=== PATIENT | male | born 1940 | race Caucasian/White ===

== ENCOUNTER → 2017-01-30 | Outpatient (CLI) | payer MEDICARE, BC | LOC: COL.RAD 07:14 | DX: Z01.89 Encounter for other specified special examinations (principal) ==

== ENCOUNTER → 2017-02-01 | Outpatient (CLI) | payer MEDICARE, BC | LOC: COL.RAD 07:15 | DX: M47.812 Spondylosis without myelopathy or radiculopathy, cervical region (principal); M48.02 Spinal stenosis, cervical region ==

== ENCOUNTER 2018-08-30 18:45 | Emergency (ER) | payer MEDICARE, BC ==
[~2018-08-30] VITALS: Ht 177.8 cm; Wt 111.4 kg
[~2018-08-30 18:45] MED LIST: OMNICEF 300MG300 MG PO; ZITHROMAX Z PA250 MG PO
[2018-08-30 20:21] LABS: COLLECTION METHOD CATHETER
[2018-08-30 20:33] LABS: AMORPHOUS CRYSTAL Present /uL; MUCOUS Present /lpf; PH 7 (5-8); SQUAMOUS EPITHELIAL None Seen /hpf; URINE APPEARANCE Clear; URINE BACTERIA None Seen /hpf; URINE BILIRUBIN Negative (NEGATIVE); URINE BLOOD 3+ (NEGATIVE); URINE COLOR Yellow; URINE GLUCOSE Negative (NEGATIVE); URINE KETONE Trace (NEGATIVE); URINE LEUKOCYTE ESTERASE Trace (NEGATIVE); URINE NITRATE Negative (NEGATIVE); URINE PROTEIN(semi-quant) Negative (NEGATIVE); URINE RBC >50 /hpf; URINE UROBILINOGEN Negative (NEGATIVE)
[2018-08-30 20:53] LABS: BASO % 0.3 % (0.0-2.0); EOS % 0.2 % (0-4.0); GRAN # 10.2 (1.4-6.5); HEMATOCRIT 41.5 % (42.0-52.0); HEMOGLOBIN 14.9 g/dl (13.5-18.0); LYMPH # 1.2 (1.2-3.4); LYMPH % 9.8 % (20.0-51.0); MEAN CELL VOLUME 91 fl (80.0-100.0); MEAN CORPUSCULAR HEMOGLOBIN 33 pg (27.0-31.0); MEAN CORPUSCULAR HGB CONC 36 g/dl (33.0-37.0); MEAN PLATELET VOLUME 12.1 fl (7.4-10.4); MONO # 0.5 (0.1-0.6); MONO % 4.3 % (1.7-9.3); PLATELET COUNT 260 K/mm3 (130-400); RED BLOOD COUNT 4.56 M/mm3 (4.20-5.60); REDCELL DISTRIBUTION WIDTH-CV 13.8 % (11.5-14.5)
[2018-08-30 21:21] LABS: ALBUMIN 3.7 gm/dL (3.5-5.0); BILIRUBIN,TOTAL 1.1 mg/dL (0.0-1.0); CALCIUM 8.8 mg/dL (8.4-10.2); CREATININE, serum 1.1 (0.66-1.25); TOTAL PROTEIN 7.2 gm/dL (6.4-8.2)
[2018-08-30 22:52] VITALS: TEMP 97.4
[2018-08-31] MEDS ORDERED: XANAX .25M0.25 MG/TA PO (00:21)
[2018-08-31] MEDS ORDERED: BUSPAR DIVIDOSE15 MG PO (00:21)
[2018-08-31 00:29] VITALS: BP 128/81; PULSE 78
== END 2018-08-31 00:50 | disposition short-term general hospital (02) ==
LOC: COL.ER 18:45
PROVIDERS: Emergency Medicine
DX: N36.8 Other specified disorders of urethra (principal); J18.9 Pneumonia, unspecified organism; J44.9 Chronic obstructive pulmonary disease, unspecified; N40.0 Benign prostatic hyperplasia without lower urinary tract symptoms; Z98.890 Other specified postprocedural states
CPT/HCPCS: J2405; J2543; J2765; J3010; J7030

== ENCOUNTER → 2018-09-03 | Outpatient (REF) ==
[~2018-09-03] MED LIST changes: +BUSPAR DIVIDOSE15 MG PO; +XANAX .25M0.25 MG/TA PO
== END ==
LOC: ZLAB.WCH 14:03
DX: Z01.89 Encounter for other specified special examinations (principal)

== ENCOUNTER 2018-10-23 06:50 | Day surgery (SDC) | payer MEDICARE, BC ==
[2018-10-23] VITALS (15 sets, daily range): BP systolic 105–143; BP diastolic 51–73; PULSE 51–76; TEMP 98.1
[~2018-10-23] VITALS: Ht 177.8 cm; Wt 101.1 kg
[2018-10-23 07:37] LABS: HEMATOCRIT 40.1 % (42.0-52.0); HEMOGLOBIN 14.2 g/dl (13.5-18.0); MEAN CELL VOLUME 92 fl (80.0-100.0); MEAN CORPUSCULAR HEMOGLOBIN 33 pg (27.0-31.0); MEAN CORPUSCULAR HGB CONC 35 g/dl (33.0-37.0); MEAN PLATELET VOLUME 9.4 fl (7.4-10.4); PLATELET COUNT 147 K/mm3 (130-400); RED BLOOD COUNT 4.35 M/mm3 (4.20-5.60); REDCELL DISTRIBUTION WIDTH-CV 13.7 % (11.5-14.5)
[2018-10-23 07:48] LABS: CALCIUM 9.8 mg/dL (8.4-10.2); CREATININE, serum 1.12 (0.66-1.25); POTASSIUM 4.2 mmol/L (3.4-5.0)
[2018-10-23] MEDS ORDERED: PROAIR RES117 MCG/Ac IH (08:40)
[2018-10-23] MEDS ORDERED: IPRATROPIUM BROM3 M1 IH (08:41)
[2018-10-23] MEDS ORDERED: ASPIRIN 81M81 MG/TA2 PO (08:41)
[2018-10-23] MEDS ORDERED: BUSPAR DIVIDOSE15 MG PO (08:42)
[2018-10-23] MEDS ORDERED: CALCIUM CARBON650 M2 PO (08:44)
[2018-10-23] MEDS ORDERED: COLACE 100100 MG/CAP PO (08:45)
[2018-10-23] MEDS ORDERED: MASON NATURAL1200 MG PO (08:46)
[2018-10-23] MEDS ORDERED: LOFIBRA160 MG PO (08:46)
[2018-10-23] MEDS ORDERED: FLONASEALLERGY NS (08:47)
[2018-10-23] MEDS ORDERED: ADVIL200 MG PO (08:47)
[2018-10-23] MEDS ORDERED: ATIVAN 1MG T1 MG/TAB PO (08:48)
[2018-10-23] MEDS ORDERED: PROBIOTIC-MAJOR PO (08:49)
[2018-10-23] MEDS ORDERED: PAXIL 10MG10 MG PO (08:49)
[2018-10-23] MEDS ORDERED: VITAMIN FLUSH-F1 CAP PO (08:49)
[2018-10-23] MEDS ORDERED: SEROQUEL50 MG PO (08:50)
[2018-10-23] MEDS ORDERED: MULTIVITAMIN SEN PO (08:50)
[2018-10-23] MEDS ORDERED: ZANTAC 150MG T150 MG PO (08:51)
[2018-10-23] MEDS ORDERED: FLOMAX 0.40.4 MG/CAP PO (08:51)
[2018-10-23] MEDS ORDERED: ZANAFLEX CAPSULE4 MG PO (08:52)
--- NOTE | 2018-10-23 09:05 | NUR ---
Pt to procedure,report to Greta Palmer
--- NOTE | 2018-10-23 09:08 | NUR ---
SEE MERGE DOCUMENTATION FOR MEDICATION ADMINISTRATION TIMES AND INTRA/POST PROCEDURE SEDATION ASSESSMENTS. FAILED RIGHT RADIAL BARBEAU TEST; MD NOTIFIED. WILL PROCEED WITH FEMORAL APPROACH.
[2018-10-23] MEDS ORDERED: PLAVIX 75MG TAB75 MG PO (09:59)
[2018-10-23] MEDS ORDERED: ZEBETA 5MG5 MG PO (10:00)
[2018-10-23] MEDS ORDERED: LIPITOR 40MG TA40 MG PO (10:01)
--- NOTE | 2018-10-23 10:20 | NUR ---
Pt transfer to Express Unit at this time. Bedside report given to BENITO Ortiz. Pt femoral access site examined with Express RN. Site without bleeding, oozing, bruising; dressing noted intact and dry. Site soft to palpation; no s/sx of hematoma noted. Distal pulses palpated +1, unchanged from pre-procedure. Monitoring equipment in place; VS's stable at this time.
--- NOTE | 2018-10-23 17:15 | NUR ---
Discharge instructions given to pt.pt verbalizes understanding.INT removed,catheter tip intact.pt escorted out via wheelchair by this nurse.
== END 2018-10-23 17:30 | disposition home or self-care (01) ==
LOC: COL.CAR 06:50
PROVIDERS: Internal Medicine Cardiovascular Disease
DX: I25.10 Atherosclerotic heart disease of native coronary artery without angina pectoris (principal); E78.2 Mixed hyperlipidemia; Z99.81 Dependence on supplemental oxygen; J44.9 Chronic obstructive pulmonary disease, unspecified; K21.9 Gastro-esophageal reflux disease without esophagitis; I10 Essential (primary) hypertension; E78.1 Pure hyperglyceridemia; L40.9 Psoriasis, unspecified; Z86.010 Personal history of colon polyps; Z98.52 Vasectomy status; Z79.899 Other long term (current) drug therapy; Z79.82 Long term (current) use of aspirin; Z87.891 Personal history of nicotine dependence; Z80.3 Family history of malignant neoplasm of breast; Z80.42 Family history of malignant neoplasm of prostate; Z82.3 Family history of stroke; Z82.49 Family history of ischemic heart disease and other diseases of the circulatory system
CPT/HCPCS: J1644; J2250; J3010

== ENCOUNTER 2020-11-23 12:25 | Inpatient (IN) | payer MEDICARE, BC ==
[~2020-11-23] VITALS: Ht 177.8 cm; Wt 109.1 kg
[~2020-11-23 12:25] MED LIST changes: +ADVIL200 MG PO; +ASPIRIN 81M81 MG/TA2 PO; +ATIVAN 1MG T1 MG/TAB PO; +CALCIUM 600600 MG PO; +COLACE 100100 MG/CAP PO; +FLOMAX 0.40.4 MG/CAP PO; +FLONASEALLERGY NS; +IPRATROPIUM BROM3 M1 IH; +LIPITOR 40MG TA40 MG PO; +LOFIBRA160 MG PO; +MASON NATURAL1200 MG PO; +MULTIVITAMIN SEN PO; +PAXIL 10MG10 MG PO; +PLAVIX 75MG TAB75 MG PO; +PROAIR RES117 MCG/Ac IH; +PROBIOTIC-MAJOR PO; +SEROQUEL50 MG PO; +VITAMIN FLUSH-F1 CAP PO; +ZANAFLEX CAPSULE4 MG PO; +ZANTAC 150MG T150 MG PO; +ZEBETA 5MG5 MG PO
[2020-11-23 13:05] LABS: BASO # 0.1 (0.0-0.2); BASO % 0.6 % (0.0-2.0); EOS # 0.2 (0.0-0.7); GRAN # 6.1 (1.4-6.5); GRAN % 77.1 % (42.2-75.2); HEMATOCRIT 44.8 % (42.0-52.0); HEMOGLOBIN 15.4 g/dl (13.5-18.0); LYMPH # 1.1 (1.2-3.4); LYMPH % 13.8 % (20.0-51.0); MEAN CELL VOLUME 91 fl (80.0-100.0); MEAN CORPUSCULAR HEMOGLOBIN 31 pg (27.0-31.0); MEAN CORPUSCULAR HGB CONC 34 g/dl (33.0-37.0); MONO # 0.5 (0.1-0.6); MONO % 6.1 % (1.7-9.3); PLATELET COUNT 142 K/mm3 (130-400); REDCELL DISTRIBUTION WIDTH-CV 13.9 % (11.5-14.5)
[2020-11-23 13:15] LABS: ARTERIAL BLD GAS O2 SATURATION 95.2 % (92-100); ARTERIAL BLD GAS TCO2 CT 24.7; ARTERIAL BLOOD GAS BASE EXCESS -0.1 (-2-2); ARTERIAL BLOOD GAS HCO3 23.6 meq/L (22-26); ARTERIAL BLOOD GAS PCO2 35.8 mmHg (35-45); ARTERIAL BLOOD GAS PO2 76.5 mmHg (80-100); ARTERIAL BLOOD GAS pH 7.44 (7.35-7.45)
[2020-11-23 13:17] LABS: ALANINE AMINOTRANSFERASE 22 U/L (4-49); ALKALINE PHOSPHATASE 89 U/L (50-136); ANION GAP 7 mmol/L (7-16); AST,SGOT 31 U/L (15-37); BILIRUBIN,TOTAL 1.3 mg/dL (0.0-1.0); BLOOD UREA NITROGEN 17 mg/dL (9-20); C-REACTIVE PROTEIN < 0.5 mg/dL (0.0-0.9); CALCIUM 9.3 mg/dL (8.4-10.2); CARBON DIOXIDE 22 mmol/L (22-30); CHLORIDE 106 mmol/L (98-107); CREATININE, serum 1.06 (0.66-1.25); GLUCOSE 122 mg/dL (74-106); POTASSIUM 4.5 mmol/L (3.4-5.0); SODIUM 135 mmol/L (137-145); TOTAL PROTEIN 7.2 gm/dL (6.4-8.2)
[2020-11-23 15:09] LABS: COLLECTION METHOD CLEAN CATCH
[2020-11-23 16:06] LABS: PH 5 (5-8); SQUAMOUS EPITHELIAL 0-2 /hpf; URINE APPEARANCE Clear; URINE BACTERIA None Seen /hpf; URINE BILIRUBIN Negative (NEGATIVE); URINE BLOOD Negative (NEGATIVE); URINE COLOR Straw; URINE GLUCOSE Negative (NEGATIVE); URINE KETONE Negative (NEGATIVE); URINE LEUKOCYTE ESTERASE Negative (NEGATIVE); URINE NITRATE Negative (NEGATIVE); URINE PROTEIN(semi-quant) Negative (NEGATIVE); URINE RBC 0-2 /hpf; URINE UROBILINOGEN Negative (NEGATIVE)
[2020-11-23 18:17] VITALS: BP 131/66; PULSE 64; TEMP 98.4
--- NOTE | 2020-11-23 18:35 | NUR ---
1811 PT RECEIVED FROM ED. NO S/S OF DISTRESS. PT NOTED ON A FACE MASK WITH O2 AT 8L. PT STATES HE USE 5L A HOME. ABLE TO WEAN O2 TO 6L. PT SATURATION IS HOLDING ABOVE 92%. PT CURRENTLY HAS NO COMPLAINT. MD AT THE BEDSIDE.
[2020-11-23 19:28] VITALS: BP 126/61; PULSE 70; TEMP 98.7
[2020-11-24 01:02] VITALS: BP 97/59; PULSE 67; TEMP 97.4
--- NOTE | 2020-11-24 03:53 | NUR ---
Aristeo slept all night in reclining chair. He complains of pain in back and he got Motrin for that. Since then he just woke up for breathing treatment. He denies SOB and calmly resting in chair.
[2020-11-24 04:59] VITALS: BP 100/52; PULSE 67; TEMP 97.7
[2020-11-24 06:48] LABS: GRAN # 4.8 (1.4-6.5); GRAN % 88.8 % (42.2-75.2); HEMATOCRIT 44.8 % (42.0-52.0); HEMOGLOBIN 15.3 g/dl (13.5-18.0); LYMPH # 0.5 (1.2-3.4); LYMPH % 9.7 % (20.0-51.0); MEAN CELL VOLUME 94 fl (80.0-100.0); MEAN CORPUSCULAR HEMOGLOBIN 32 pg (27.0-31.0); MEAN CORPUSCULAR HGB CONC 34 g/dl (33.0-37.0); MEAN PLATELET VOLUME 10.6 fl (7.4-10.4); MONO # 0.1 (0.1-0.6); MONO % 1.3 % (1.7-9.3); PLATELET COUNT 145 K/mm3 (130-400); RED BLOOD COUNT 4.78 M/mm3 (4.20-5.60); REDCELL DISTRIBUTION WIDTH-CV 13.8 % (11.5-14.5)
[2020-11-24 06:55] LABS: CALCIUM 9.6 mg/dL (8.4-10.2); CREATININE, serum 1.47 (0.66-1.25); POTASSIUM 4.3 mmol/L (3.4-5.0)
[2020-11-24 08:32] VITALS: BP 125/46; PULSE 89; TEMP 97.6
--- NOTE | 2020-11-24 11:00 | NUR ---
SW met with the patient to discuss discharge plan. The patient lives alone in [place]. He states that his daughter, Juliana (ph#[phone]), and her family also live in [place], but that they are in [place] right now through the weekend. He reports independence with ADLs and does not have any assistive devices. He has home oxygen from [facility]. He states that he is on 5 liters at home. The patient's PCP is Dr. Gabriel Moran and he receives his medications from [facility]. He reports no difficulties obtaining his meds. The patient does not have a DPOA-HC and he was not interested in completing one while here. The patient states that his is and that he has three children: Juliana, Leona, and Mary Ellen. The patient plans to return home upon discharge. He states that he has a lady friend that will transport him home and get him groceries or anything that he needs until his daughter gets back. He had no other concerns for SW at this time. SW to follow as needed. *Discharge plan: home*
--- NOTE | 2020-11-24 11:12 | NUR ---
0700 PT RECEIVED SITTING IN CHAIR WATCHING TV. NO S/S OF DISTRESS NOTED. OXYGEN IN PLACE VIA NC. PT HAS NO COMPLAINTS. COMFORT MEASURES IN PLACE. WILL CONTINUE TO MONITOR. 0830 MEDICATIONS ADMINISTERED ORDERED. 0900 DAUGHTER AT THE BEDSIDE AND UPDATED ON THE PT'S PROGRESS WITH THE PT'S CONSENT.
[2020-11-24 11:32] VITALS: BP 99/54; PULSE 78; TEMP 97.6
[2020-11-24 16:52] VITALS: BP 126/51; PULSE 89; TEMP 98.2
[2020-11-24 21:36] VITALS: BP 122/59; PULSE 82; TEMP 97.5
[2020-11-25 01:05] VITALS: BP 98/50; PULSE 72; TEMP 97.7
[2020-11-25 03:49] VITALS: BP 117/55; PULSE 76; TEMP 97.5
[2020-11-25 07:08] LABS: BASO % 0.1 % (0.0-2.0); GRAN % 88.3 % (42.2-75.2); HEMATOCRIT 42.4 % (42.0-52.0); HEMOGLOBIN 14.4 g/dl (13.5-18.0); LYMPH # 0.8 (1.2-3.4); MEAN CELL VOLUME 95 fl (80.0-100.0); MEAN CORPUSCULAR HEMOGLOBIN 32 pg (27.0-31.0); MEAN CORPUSCULAR HGB CONC 34 g/dl (33.0-37.0); MEAN PLATELET VOLUME 10.4 fl (7.4-10.4); MONO # 0.4 (0.1-0.6); MONO % 3.8 % (1.7-9.3); PLATELET COUNT 140 K/mm3 (130-400); RED BLOOD COUNT 4.48 M/mm3 (4.20-5.60); REDCELL DISTRIBUTION WIDTH-CV 14.3 % (11.5-14.5)
[2020-11-25 07:13] LABS: CALCIUM 9.1 mg/dL (8.4-10.2); CREATININE, serum 1.07 (0.66-1.25); POTASSIUM 4.1 mmol/L (3.4-5.0)
[2020-11-25 08:12] VITALS: BP 134/42; PULSE 91; TEMP 97.5
--- NOTE | 2020-11-25 10:34 | NUR ---
Pt awake and alert upon entry, sitting in the recliner. No C/O pain at this time. Shift assessment cvomplete, left Pt call light in reach.
[2020-11-25 12:01] VITALS: BP 112/51; PULSE 83; TEMP 97.6
--- NOTE | 2020-11-25 14:08 | NUR ---
PT noted that the patient would benefit from home health, but that he declined home health. PT is recommending possible outpatient PT. SW met with the patient and his daughter, Mary Ellen, to discuss their recommendation. The patient reports that he does not feel like he needs any continued outpatient therapy upon discharge and is not interested in home health at this time. He states that he is very active at home and does all his own housecleaning and mowes his lawn. The patient reports that he is going to be having a biopsy on Saturday and would rather wait until then to decide if he would want any outpatient services. The patient's daughter, Mary Ellen, was interested in obtaining a DPOA-HC form. SW provided the form to Mary Ellen.
[2020-11-25 16:28] VITALS: BP 138/63; PULSE 85; TEMP 97.8
[2020-11-25 19:14] VITALS: BP 116/56; PULSE 84; TEMP 98.3
[2020-11-26 00:04] VITALS: BP 120/59; PULSE 75; TEMP 97.7
--- NOTE | 2020-11-26 02:11 | NUR ---
Nicholas get anxious last night about getting a new room. His Tv is not working and he said that he cannot sleep without any sounds. He usually sleep in the reclining chair. He get transferred to 7 and since he got all his night meds and transferred to room he slept all night. He is comfortably laying in his bed denies pain or SOB. Call light is within reach.
[2020-11-26 03:03] VITALS: BP 108/49; PULSE 69; TEMP 97.5
[2020-11-26 07:00] LABS: HEMATOCRIT 38.6 % (42.0-52.0); HEMOGLOBIN 12.6 g/dl (13.5-18.0); MEAN CELL VOLUME 97 fl (80.0-100.0); MEAN CORPUSCULAR HEMOGLOBIN 32 pg (27.0-31.0); MEAN CORPUSCULAR HGB CONC 33 g/dl (33.0-37.0); MEAN PLATELET VOLUME 10.3 fl (7.4-10.4); PLATELET COUNT 126 K/mm3 (130-400); RED BLOOD COUNT 3.98 M/mm3 (4.20-5.60); REDCELL DISTRIBUTION WIDTH-CV 14.5 % (11.5-14.5)
[2020-11-26 07:11] LABS: CALCIUM 8.7 mg/dL (8.4-10.2); CREATININE, serum 0.91 (0.66-1.25); POTASSIUM 4.1 mmol/L (3.4-5.0)
[2020-11-26 07:21] LABS: INR 1.1 (0.8-3.0); PROTHROMBIN TIME 12.6 SECONDS (9.7-12.8)
[2020-11-26 08:00] VITALS: BP 124/55; PULSE 75; TEMP 97.6
[2020-11-26 12:50] VITALS: BP 125/59; PULSE 76; TEMP 98.1
[2020-11-26 13:54] LABS: GLUCOSE,PLEURAL FLUID 133 mg/dL; TOTAL PROTEIN,PLEURAL FLUID 3.7 gm/dL
[2020-11-26 13:59] LABS: PLEURAL FLUID RBC 117000 /mm3 (0-0); PLEURAL FLUID WBC 1662 /mm3
[2020-11-26] MEDS ORDERED: PAXIL 20MG20 MG PO (14:57)
--- NOTE | 2020-11-26 15:47 | NUR ---
DA supported patient plan of DC'ing home with O2 at 6 liters. DA faxed via [facility] for O2 to move from 5 to 6. Azael at [facility] will deliver the O2 to the patient in room. NF
[2020-11-26 15:48] VITALS: BP 120/61; PULSE 74; TEMP 98.6
[2020-11-27 17:07] LABS: BODY FLUID PH (AMS) 9 (())
[2020-11-30] MEDS ORDERED: PLAVIX 75MG TAB75 MG PO (13:58)
[2020-11-30] MEDS ORDERED: LIPITOR 40MG TA40 MG PO (14:09)
[2020-11-30] MEDS ORDERED: ZEBETA 5MG5 MG PO (14:09)
== END 2020-11-26 16:30 | disposition home or self-care (01) | DRG 189 ==
LOC: COL.ER 12:25 → MEDICAL 16:42
PROVIDERS: Family Medicine; Internal Medicine Pulmonary Disease; Physician Assistant; ADMIT Internal Medicine
PROC: 0W993ZZ Drainage of Right Pleural Cavity, Percutaneous Approach (ICD-10-PCS; principal; 2020-11-24)
DX: J96.21 Acute and chronic respiratory failure with hypoxia (principal); J44.1 Chronic obstructive pulmonary disease with (acute) exacerbation; N17.9 Acute kidney failure, unspecified; J90 Pleural effusion, not elsewhere classified; I25.10 Atherosclerotic heart disease of native coronary artery without angina pectoris; G89.29 Other chronic pain; M54.9 Dorsalgia, unspecified; F41.9 Anxiety disorder, unspecified; F32.9 Major depressive disorder, single episode, unspecified; E78.5 Hyperlipidemia, unspecified; I10 Essential (primary) hypertension; Z20.828 Contact with and (suspected) exposure to other viral communicable diseases
CPT/HCPCS: 99222-AI; 99232-AI; 99233-AI; 99239; A9284; J0696; J1644; J1940; J2920; J7030; J7040; J7120; Q9967

== ENCOUNTER 2020-12-05 06:58 | Outpatient (CLI) | payer MEDICARE, BC ==
[~2020-12-05] VITALS: Ht 177.8 cm; Wt 101.0 kg
[2020-12-05] VITALS (13 sets, daily range): BP systolic 117–142; BP diastolic 54–75; PULSE 59–74
[~2020-12-05 06:58] MED LIST changes: +PAXIL 20MG20 MG PO
[2020-12-05] MEDS ORDERED: PAXIL 10MG10 MG PO (07:38)
--- NOTE | 2020-12-05 12:30 | NUR ---
Pt transported from express unit to ultrasound for thoracentesis. Consent obtained by express unit.
--- NOTE | 2020-12-05 12:35 | NUR ---
Consent signed for thoracentesis. Pt's daughter updated that pt will be going for procedure at this time, when she returns from running errands, she will wait in radiology waiting room. Pt taken at this time by wheelchair with belongings to radiology dept by BENITO Malik.
[2020-12-05 15:13] LABS: GLUCOSE,PLEURAL FLUID 104 mg/dL; TOTAL PROTEIN,PLEURAL FLUID 3.9 gm/dL
[2020-12-05 15:16] LABS: PLEURAL FLUID RBC 73000 /mm3 (0-0); PLEURAL FLUID WBC 1113 /mm3
== END 2020-12-05 13:00 | disposition home or self-care (01) ==
LOC: COL.RAD 06:58
PROVIDERS: Internal Medicine Pulmonary Disease
DX: C7A.8 Other malignant neuroendocrine tumors (principal); J90 Pleural effusion, not elsewhere classified; R91.8 Other nonspecific abnormal finding of lung field; J84.9 Interstitial pulmonary disease, unspecified
CPT/HCPCS: 19804; 32107

== ENCOUNTER 2020-12-11 14:12 | Observation (INO) | payer MEDICARE, BC ==
[2020-12-11 15:18] LABS: BASO # 0.1 (0.0-0.2); BASO % 0.6 % (0.0-2.0); EOS # 0.1 (0.0-0.7); EOS % 1.1 % (0-4.0); GRAN # 7.2 (1.4-6.5); HEMATOCRIT 42.8 % (42.0-52.0); HEMOGLOBIN 14.5 g/dl (13.5-18.0); LYMPH # 0.8 (1.2-3.4); LYMPH % 9.5 % (20.0-51.0); MEAN CELL VOLUME 91 fl (80.0-100.0); MEAN CORPUSCULAR HEMOGLOBIN 31 pg (27.0-31.0); MEAN CORPUSCULAR HGB CONC 34 g/dl (33.0-37.0); MEAN PLATELET VOLUME 10.3 fl (7.4-10.4); MONO # 0.6 (0.1-0.6); MONO % 6.3 % (1.7-9.3); PLATELET COUNT 189 K/mm3 (130-400); RED BLOOD COUNT 4.69 M/mm3 (4.20-5.60); REDCELL DISTRIBUTION WIDTH-CV 13.3 % (11.5-14.5)
[2020-12-11 15:26] LABS: INR 1.1 (0.8-3.0); PROTHROMBIN TIME 12.5 SECONDS (9.7-12.8)
[2020-12-11 15:36] LABS: ALBUMIN 3.6 gm/dL (3.5-5.0); BILIRUBIN,TOTAL 0.8 mg/dL (0.0-1.0); CREATININE, serum 0.99 (0.66-1.25); POTASSIUM 4.5 mmol/L (3.4-5.0); TOTAL PROTEIN 6.6 gm/dL (6.4-8.2)
[2020-12-11 20:25] VITALS: BP 125/52; PULSE 75; TEMP 98
--- NOTE | 2020-12-11 20:39 | NUR ---
ADMITTED TO ROOM 343. PER WCFROM ER. O2 AT 6LN/C. NO PAIN. NO DISTRESS.
--- NOTE | 2020-12-11 21:51 | NUR ---
PT RESTING IN RECLINER. NO DISTRESS AT THIS TIME. O2 MAINTAINS AT 6L N/C.CALL LIGHT IN REACH.
[2020-12-11 23:17] VITALS: BP 115/53; PULSE 70; TEMP 97.6
[2020-12-12 04:45] VITALS: BP 113/56; PULSE 68; TEMP 97.4
--- NOTE | 2020-12-12 06:08 | NUR ---
PT C/O NAUSEA AND SHAKINESS. CHECKED ACCUCHECK-99. CALLED [facility]. SEE NEW ORDER FOR CORBY.
--- NOTE | 2020-12-12 08:00 | NUR ---
PATIENT IS ORIENTED X2 TO PERSON AND PLACE BUT DISPLAYS CONFUSION. PATIENT WILL FORGET CONVERSATIONS AND ASK THE SAME QUESTION MULTIPLE TIMES. PATIENT HAS 20G IV TO RIGHT FOREARM. NS AT 60CC/HR. PATIENT IS NPO FOR ULTRASOUND GUIDED THOROCENTESIS. HE IS SCHEDULED FOR THIS AFTER MULTIPLE ATTEMPTS AT THOROCENTSIS YESTERDAY. PATIENT HAS HX OF COPD AND HAS SMALL CELL CARCINOMA. DAUGHTER CAME IN TO SIGN CONSENT. PATIENT ON LOVENOX FOR DVT PROPHYLAXIS. NO FURTHER NEEDS AT THIS TIME. HEAD TO TOE ASSESSMENT COMPLETE. CALL LIGHT WITHIN REACH.
[2020-12-12 09:14] VITALS: BP 102/61; PULSE 69; TEMP 98.1
--- NOTE | 2020-12-12 09:50 | NUR ---
AT BEDSIDE TALKING WITH PATIENT & DAUGHTER. CONSENT OBTAINED FOR US GUIDED ROBIN.
--- NOTE | 2020-12-12 10:15 | NUR ---
PATIENT GOING DOWN TO RADIOLOGY FOR THORO. PATIENT OFF FLOOR
--- NOTE | 2020-12-12 11:08 | NUR ---
Sw tried to complete assessment, but pt was not in room. Sw to try back at another time.
[2020-12-12 12:25] VITALS: BP 103/50; PULSE 71; TEMP 97.8
--- NOTE | 2020-12-12 13:39 | NUR ---
Sw met with the pt who stated his preference to return home once medically stable. The pt lives alone at home (). The pt next of kin and DPOA-HC is his daughter, Juliana Ames (ph# [phone]). The pt states he is independent on all ADLs and uses nebulizers, and home oxygen (6L). The pt PCP is Gabriel Roy and gets his medications from [facility] and has no trouble obtaining cost. DPOA-HC is in chart. No other needs stated at this time. Sw to await further recommendations and Sw to follow up as needed. Pt was annoyed and wanted questions answered quick. D/C: Home.
--- NOTE | 2020-12-12 14:01 | NUR ---
Initial visit; Patient thanked [employer]er for looking in on him and offering God's blessings.
[2020-12-12 15:57] VITALS: BP 119/46; PULSE 78; TEMP 97.9
--- NOTE | 2020-12-12 17:15 | NUR ---
PATIENT DISCHARGING HOME VIA WC TO PERSONAL VEHCILE WITH DAUGHTER. GAVE DISCHARGE INSTRUCTIONS AND DISCUSSED F/U APTS. ANSWERED QUESTIONS/CONCERNS. RIGHT FORARM IV DC'D AND COVERED WITH GAUZE [employer] COBAN. PATIENT ESCORTED OUT WITH 6L OXYGEN PER NC, DAUGHTER HAS PERSONAL OXYGEN TANK IN VEHICLE. PATIENT DRESSED, PACKED AND DISCHARGED.
== END 2020-12-12 17:15 | disposition home or self-care (01) ==
LOC: COL.ER 14:12 → SURG 17:04
PROVIDERS: Nurse Practitioner Primary Care; ADMIT Internal Medicine
DX: J44.9 Chronic obstructive pulmonary disease, unspecified (principal); J91.8 Pleural effusion in other conditions classified elsewhere; C34.91 Malignant neoplasm of unspecified part of right bronchus or lung; J96.11 Chronic respiratory failure with hypoxia; E87.1 Hypo-osmolality and hyponatremia; I10 Essential (primary) hypertension; E78.5 Hyperlipidemia, unspecified; F32.9 Major depressive disorder, single episode, unspecified; Z20.822 Contact with and (suspected) exposure to COVID-19; F41.3 Other mixed anxiety disorders; Z99.81 Dependence on supplemental oxygen; Z79.01 Long term (current) use of anticoagulants; Z87.891 Personal history of nicotine dependence; Z79.899 Other long term (current) drug therapy
CPT/HCPCS: G0378; J1650; J2405; J7030